=== PATIENT | male | born 1965 | race Caucasian/White ===

== ENCOUNTER 2023-12-26 08:46 | Emergency (ER) | payer OTHER ==
[2023-12-26] VITALS (10 sets, daily range): BP systolic 116–147; BP diastolic 78–95
[~2023-12-26] VITALS: Ht 185.4 cm; Wt 79.3 kg
[2023-12-26 09:27] LABS: BASO% 0.4 % (0-3); EOS% 2.2 % (0-8); HEMATOCRIT 44.6 % (39.0-50.0); HEMOGLOBIN 14.6 g/dl (14.0-18.0); IMMATURE GRANULOCYTES 0.3 % (0.0-5.0); LYMPH% 30.2 % (15-41); MEAN CELL VOLUME 91.8 fL CALC (80.0-100.0); MEAN CORPUSCULAR HGB CONC 32.7 g/dL CAL (32.0-36.0); MONO% 6.4 % (2-13); NEUT# 4.37 thou/uL (1.82-7.42); NEUT% 60.5 % (42-76); RED BLOOD COUNT 4.86 mill/uL (4.70-6.10)
[2023-12-26 09:41] LABS: ALBUMIN 4.6 g/dL (3.2-5.0); BILIRUBIN, TOTAL 0.6 mg/dL (0.2-1.3); CREATININE 0.9 mg/dL (0.7-1.3); POTASSIUM 4.7 mmol/l (3.5-5.1); TOTAL PROTEIN 7.7 g/dL (6.3-8.2)
[2023-12-26] MEDS ORDERED: KETOROLAC TROMETHAMINE 30 MG/ML SDV IV ONE (10:55)
[2023-12-26] MEDS ORDERED: ZOFRAN4 MG/TAB PO (11:59)
[2023-12-26] MEDS ORDERED: MECLIZINE HYDRO25 M1 PO (11:59)
== END 2023-12-26 12:42 | disposition home or self-care (01) | DRG 149 ==
LOC: ED 08:46
PROVIDERS: Family Medicine
DX: H81.10 Benign paroxysmal vertigo, unspecified ear (principal); Z20.822 Contact with and (suspected) exposure to COVID-19